=== PATIENT | female | born 1950 | race Caucasian/White ===

== ENCOUNTER 2017-10-23 07:11 | Emergency (ER) | payer OTHER ==
[~2017-10-23] VITALS: Ht 160 cm; Wt 78.0 kg
[~2017-10-23 07:11] MED LIST: PREVACID15 MG
[2017-10-23] MEDS ORDERED: ZANTAC300 MG PO (11:15)
[2017-10-23] MEDS ORDERED: PREVACID30 MG PO (11:15)
[2017-10-23] MEDS ORDERED: ACIDOPHILUS1 EAC3 PO (11:15)
== END 2017-10-23 12:32 | disposition home or self-care (01) ==
LOC: ER 07:11
DX: K52.9 Noninfective gastroenteritis and colitis, unspecified (principal)